=== PATIENT | female | born 1950 | race Caucasian/White ===

== ENCOUNTER 2016-07-07 17:17 | Inpatient (IN) | payer MEDICARE, OTHER ==
--- NOTE | ~2016-07-07 | OP ---
Record Of [place] [address] [place]. [address] NAME: GUALBERTO MURRELL : 46 STATUS : ADM IN [facility]#: [id number] AGE: 66 ADM/REG DATE : 07/10/16 MR#: [id number] REPORT SERV DATE: 07/12/16 DICTATED BY: LVI FLORES JR. DATE: 07/12/16 REPORT STATUS : Draft TRANSCRIBED BY: EDWIN DATE: 07/12/16 DATE OF PROCEDURE: 07/11/2016 IFR OF THE RIGHT CORONARY ARTERY REFERRING PHYSICIANS: Dr. Angelo and Dr. Jonathan Alicea and also Dr. Robert Barnett. PROCEDURE: IFR of the right coronary artery. INDICATION: Xji-QZ-roumnzcja myocardial infarction. ACCESS: Right femoral artery. EQUIPMENT: XB RCA with no side holes. ANTICOAGULATION: 8000 units of intravenous heparin. FLUOROSCOPY TIME FOR THE ENTIRE PROCEDURE: 8.3 minutes with 486 mGy and 150 mL of contrast. ANGIOGRAPHY: There is a mild 10% stenosis of the proximal right coronary artery with an intermediate stenosis of the mid right coronary artery, mildly hazy, approximately 40%, followed by a sequential 25% stenosis. This is a codominant vessel giving rise to a distal right PDA and a smaller accessory right posterolateral branch. The vessel is approximately 4 mm in diameter proximally at mid vessel and 2.75 mm distally. PROCEDURE IN DETAIL: After intravenous heparinization was administered, an XB RCA without side holes accessed the ostium of the right coronary artery. ACT returned at 284 seconds. A Patterson guidewire then successfully traversed the lesions to the distal right coronary artery. IFR was measured twice at 1.00 for which procedure was terminated and no intervention was performed. IMPRESSION: Successful IFR of the mid right coronary artery. PLANS AND RECOMMENDATIONS: 1. Sheath removal at ACT below 170 with manual pressure. 2. Cardiac risk factor reduction. 3. Medical management. /EDWIN Liv Flores Jr., M.D. / [id number] Record Of [address] [place]. [address] NAME: GUALBERTO MURRELL : 46 STATUS : ADM IN PAT#: [id number] AGE: 66 ADM/REG DATE : 07/10/16 MR#: [id number] REPORT SERV DATE: 07/12/16 DICTATED BY: LIV FLORES JR. DATE: 07/12/16 REPORT STATUS : Draft TRANSCRIBED BY: MODL DATE: 07/12/16 CC: Jonathan Angulo Jr, MD William L. Horton, M.D. [place] A Tombul, D.O.
--- NOTE | ~2016-07-07 | HP ---
History And Physical [place] [id number] [place]. [address] NAME: GUALBERTO MURRELL : 46 STATUS : ADM Ninfa PAT#: [id number] AGE: 66 ADM/REG DATE : 07/07/16 MR#: [id number] REPORT SERV DATE: 07/08/16 DICTATED BY: ERNESTINE DAVIS DATE: 07/07/16 REPORT STATUS : Draft TRANSCRIBED BY: MODClaire DATE: 07/07/16 DATE OF ADMISSION: 07/07/2016 CHIEF COMPLAINT: A 66-year-old female presenting with chest pain and no abdominal pain. HISTORY OF PRESENTING ILLNESS: The patient's history was obtained through careful interview with the patient and [id number] coupled with review of [facility] medical records. The patient states that just on the morning of admission, she developed indigestion. She has been having intermittent indigestion and reflux symptoms, but it really was severe on the day of admission. She tried to take some Gas-X and it initially improved these symptoms, but then by the afternoon, she was having worsening pain. She describes chest discomfort in the middle of her back radiating to the back, exacerbated by breathing, a sharp quality, 7/10 severity, but also burning discomfort with reflux symptoms. She had associated shortness of breath with dyspnea on exertion. No nausea or vomiting. She tried to drink some Sprite and eat some Tums, but these did not help. She states "I had to sit straight up in a chair" to get relief. She has felt weak, but no dizziness. No fevers or chills. No abdominal pain otherwise. REVIEW OF SYSTEMS: Otherwise, a 14-point review of systems was obtained and was negative. PAST MEDICAL HISTORY: 1. Pacemaker, but apparently is being evaluated for replacement with AICD placement under the care of Dr. Lisandro Cuellar. 2. Hypertension. 3. Polycythemia vera, followed by Dr. Coreas. 4. Thrombocytopenia, also followed by Dr. Coreas with a negative bone marrow biopsy. 5. No lung disease. PAST SURGICAL HISTORY: 1. A single lead pacemaker. 2. Right foot surgery. ALLERGIES: NO KNOWN DRUG ALLERGIES. SOCIAL HISTORY: Quit smoking five years ago. No alcohol abuse. Is , in poor health from diabetes, atrial fibrillation, and colostomy. The patient has sons. Lives in [place], [place]. History And Physical [address] [address] NAME: GUALBERTO MURRELL : 46 STATUS : ADM Ninfa PAT#: [id number] AGE: 66 ADM/REG DATE : 07/07/16 MR#: [id number] REPORT SERV DATE: 07/08/16 DICTATED BY: ERNESTINE DAVIS DATE: 07/07/16 REPORT STATUS : Draft TRANSCRIBED BY: EDWIN DATE: 07/07/16 FAMILY HISTORY: No cardiac disease. Mother of breast cancer. Father of pancreatic cancer. CURRENT MEDICATIONS: Include Norvasc 5 mg p.o. daily, aspirin 81 mg p.o. daily, Coreg 3.125 mg p.o. b.i.d., Tylenol PM, ramipril 10 mg p.o. q.h.s. PHYSICAL EXAMINATION: VITAL SIGNS: Temperature 98.0, pulse 96, blood pressure 133/80, respiratory rate 22, O2 saturation 96% on room air. GENERAL: A pleasant, cooperative female, in no evidence of acute distress at this time. HEENT: Pupils equal, round, and reactive to light. No conjunctival pallor. No scleral icterus. Nares are patent. Oropharynx is clear of obstruction. Moist mucous membranes. NECK: Trachea midline. No thyromegaly. LYMPH: No cervical lymphadenopathy. No supraclavicular lymphadenopathy. RESPIRATORY: Clear to auscultation by my examination. No wheezes. No rales. No rhonchi. The patient has a normal respiratory effort. CARDIOVASCULAR: Regular rate and rhythm. No murmurs, rubs, or gallops are appreciated. No current extremity edema is appreciated. ABDOMEN: Completely soft. There is no right upper quadrant abdominal pain at all. Nondistended. No hepatosplenomegaly. DERMATOLOGICAL: Warm and dry extremities. No pallor. No cyanosis. PSYCHIATRIC: Normal affect. Good mood. Alert and oriented x3. LABORATORY DATA: White blood cell count 7.6, hemoglobin 15, hematocrit 43, platelets 133. Sodium 144, potassium 3.7, chloride 110, bicarb 28, BUN 15, creatinine 0.65, glucose 99, brain natriuretic peptide 371. Troponin negative. INR 1.1. STUDIES: 1. Chest x-ray by my own evaluation shows no acute cardiopulmonary process. 2. EKG by my own evaluation shows sinus rhythm, left bundle-branch block. 3. CT angiogram of the chest shows no pulmonary embolism, but shows possible edema around the gallbladder that could be consistent with acute or chronic cholecystitis. ASSESSMENT AND PLAN: 1. Chest pain evaluation. Follow troponin. Continue aspirin. Check telemetry. Consult Dr. Cuellar, profiling machine operator. 2. Abnormal CT scan of the gallbladder. Check an ultrasound of the gallbladder. Consult Dr. Fajardo. The patient has a benign exam though. 3. Arrhythmia. The patient apparently needs replaced pacer/AICD. We will consult Dr. Cuellar, profiling machine operator. Check telemetry. 4. Polycythemia with thrombocytopenia. 5. Elevated brain natriuretic peptide, but no signs of volume overload by exam or seemingly by history, but we will check an echocardiogram and follow brain natriuretic peptide closely. History And Physical [address] [address] NAME: GUALBERTO MURRELL : 46 STATUS : ADM Ninfa PAT#: [id number] AGE: 66 ADM/REG DATE : 07/07/16 MR#: [id number] REPORT SERV DATE: 07/08/16 DICTATED BY: ERNESTINE DAVIS DATE: 07/07/16 REPORT STATUS : Draft TRANSCRIBED BY: EDWIN DATE: 07/07/16 SAMANTHA/EDWIN Ernestine Davis M.D. / [id number] CC: Awa Augustine M.D. Michael C Allan, M.D. Daniel Heithold, M.D.
--- NOTE | ~2016-07-07 | CN ---
Consultation Report [place] [address] [place]. [address] NAME: GUALBERTO MURRELL : 46 STATUS : ADM IN [facility]#: [id number] AGE: 66 ADM/REG DATE : 07/10/16 MR#: [id number] REPORT SERV DATE: 07/13/16 DICTATED BY: CRUZ HOLLOWAY DATE: 07/13/16 REPORT STATUS : Draft TRANSCRIBED BY: MODClaire DATE: 07/13/16 DATE OF CONSULTATION: Dear Dr. Angulo: Thank you for requesting my opinion regarding Gualberto Murrell's left-sided iatrogenic pneumothorax. Ms. Murrell is a pleasant 66-year-old female with a significant past medical history of recent pacemaker replacement, polycythemia vera and hypotension, who presented to [facility] with chest pain that she describes as radiating to her back, 7/10 in severity, sharp quality, associated with burning discomfort. The patient underwent a left- sided pacemaker replacement yesterday. Initial postprocedural chest x-ray demonstrated a small pneumothorax, which is now enlarged. The patient states that she has some mild shortness of breath and discomfort in her back that is new since the development of her pneumothorax, which is mild in nature. REVIEW OF SYSTEMS: A detailed 14-point review of systems was completed. Pertinent positives and negatives are listed above. PAST MEDICAL HISTORY: 1. Pacemaker replacement. 2. Hypertension. 3. Polycythemia vera. 4. Thrombocytopenia. PAST SURGICAL HISTORY: 1. Previous single-lead pacemaker. 2. Right foot surgery. ALLERGIES: NO KNOWN DRUG ALLERGIES. HOME MEDICATIONS: Reviewed and located in the paper chart. The patient has been off heparin drip since prior to the pacemaker replacement. SOCIAL HISTORY: The patient quit smoking five years ago. She has no history of alcohol or illicit drug abuse. She has sons and lives in [place], [place]. FAMILY HISTORY: No cardiac disease. Mother of breast cancer. Father of pancreatic cancer. PHYSICAL EXAMINATION: VITAL SIGNS: Afebrile, T-current 96.7, pulse of 109, respiratory rate of 16, 1 L nasal cannula, blood pressure 135/72, and 95%. GENERAL: Chronically ill-appearing elderly female, in no acute distress. Able to Consultation Report [place] [address] [place]. [address] NAME: GUALBERTO MURRELL : 46 STATUS : ADM IN PAT#: [id number] AGE: 66 ADM/REG DATE : 07/10/16 MR#: [id number] REPORT SERV DATE: 07/13/16 DICTATED BY: CRUZ HOLLOWAY DATE: 07/13/16 REPORT STATUS : Draft TRANSCRIBED BY: EDWIN DATE: 07/13/16 communicate in full paragraphs at a time. HEENT: Normocephalic and atraumatic. Pupils equal, round, and reactive to light and accommodation. Posterior oropharynx is clear. NECK: No JVD. No LAD. Trachea midline. CARDIOVASCULAR: Regular rate and rhythm. S1 and S2 present. LUNGS: Diminished breath sounds bilaterally, no significant difference between the left and the right. Breath sounds are heard throughout the left chest base and no dullness to percussion. ABDOMEN: No tympany. Nontender, nondistended, soft. Positive bowel sounds. EXTREMITIES: No clubbing, cyanosis, or edema. SKIN: Left pacemaker replacement. NEUROLOGIC: 5/5 strength in upper and lower extremities. Cranial nerves 2 through 12 intact. Gait not tested. DTRs not performed. LABORATORY DATA: White count of 8, hemoglobin of 13, platelet count of 114. INR of 1.2, PTT of 28. Chemistries demonstrate a creatinine of 0.61. IMAGING: Chest x-ray, PA and lateral, on 07/13/2016 demonstrates increased pneumothorax, described as at least 10% in volume, you can see the left apex as well as the left lateral component of the chest wall with more separation. These findings were discussed with Dr. Angulo as well, and we reviewed the images personally. ASSESSMENT AND PLAN: Ms. Gualberto Murrell is an extremely pleasant 66-year-old female with a significant past medical history of recent pacemaker replacement, whose postprocedural course has been complicated by left-sided pleuritic chest discomfort and pleuritic back discomfort. The patient is found to have an enlarging left-sided pneumothorax. Given her symptoms and the increasing size of the pneumothorax, we have discussed in detail potential options including needle decompression, chest tube placement, and VATS. After careful discussion of the risks, benefits and alternatives to each of these procedures, we agreed to proceed forward with left-sided chest tube placement. The patient is aware that the procedure is associated with potential life-threatening risks, including lung collapse, respiratory failure, and even . A summary of my recommendations are as follows: Proceed with left-sided chest tube placement. Thank you for allowing me to participate in Ms. Murrell's care. CIERRA/EDWIN Cruz Holloway M.D. Consultation Report [address] [address] NAME: GUALBERTO MURRELL : 46 STATUS : ADM IN [facility]#: [id number] AGE: 66 ADM/REG DATE : 07/10/16 MR#: [id number] REPORT SERV DATE: 07/13/16 DICTATED BY: CRUZ HOLLOWAY DATE: 07/13/16 REPORT STATUS : Draft TRANSCRIBED BY: EDWIN DATE: 07/13/16 / [id number] CC: Jonathan Angulo Jr, MD William L. Horton, M.D.
--- NOTE | ~2016-07-07 | CN ---
Consultation Report [facility] [address] [place]. [address] NAME: GUALBERTO MURRELL : 46 STATUS : ADM Ninfa PAT#: [id number] AGE: 66 ADM/REG DATE : 07/07/16 MR#: [id number] REPORT SERV DATE: 07/10/16 DICTATED BY: ROBERT BARNETT DATE: 07/09/16 REPORT STATUS : Draft TRANSCRIBED BY: EDWIN DATE: 07/09/16 CARDIOLOGY CONSULTATION. DATE OF CONSULTATION: 07/08/2016 REFERRED BY: Hospitalist. REASON: Positive troponin measurements, chest pain. PRIMARY CARE PHYSICIAN: Dr. Alicea. HISTORY OF PRESENT ILLNESS: A very pleasant 66-year-old patient followed by Dr. Cuellar and Dr. Alicea, who presents with very typical anginal symptoms. 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 Symptoms did not resolve, so EMS was activated, and EKGs performed. She relates that sublingual nitroglycerin gave her nearly prompt relief of her symptoms. She was brought to the [facility] emergency room and admitted to the Hospitalist Service. Her troponin measurement has peaked at 0.07. Her echocardiogram performed at the bedside revealed a severe cardiomyopathy, and in particular the anterior wall appears fairly akinetic. Left ventricular ejection fraction is very low at not greater than 25%. No significant valvular abnormalities are identified. The patient is a very good historian and she is accompanied at the bedside by her [id number] as well as 2 granddaughters. PAST MEDICAL HISTORY: 1. Hypertension. She takes ramipril and amlodipine. 2. Symptomatic complete heart block. The patient developed dyspnea in 04/2015 and was admitted to [facility] with heart rates in the 20s and 30s and accelerated hypertension. Echo revealed what was described as a normal ejection fraction although I cannot find the report. She had a mild pericardial effusion. I reviewed the echo images myself and it appears that her ejection fraction was not much greater than 50%. Right heart chambers were prominent at that time. She was seen by Dr. Cuellar and received a Medtronic dual-chamber permanent pacemaker. Subsequently, she has been seen in followup by both Dr. Cuellar and Dr. Alicea. The patient's apparently also sees Dr. Cuellar. 3. Other medical history includes tobacco use. She used to smoke a fair amount. She quit subsequently. 4. Cardiomyopathy as above. The patient denies ischemic workup. I checked at [facility], there was no record of any stress testing or cardiac catheterization. She has not had anything like that at [facility] either. ALLERGIES: NONE KNOWN. SOCIAL HISTORY: . Denies alcohol. Consultation Report [place] [address] [place]. [address] NAME: GUALBERTO MURRELL : 46 STATUS : ADM Ninfa PAT#: [id number] AGE: 66 ADM/REG DATE : 07/07/16 MR#: [id number] REPORT SERV DATE: 07/10/16 DICTATED BY: ROBERT BARNETT DATE: 07/09/16 REPORT STATUS : Draft TRANSCRIBED BY: EDWIN DATE: 07/09/16 Subsequent office visits revealed routine findings on pacemaker interrogation including some short bursts of supraventricular tachycardia, nonsustained, asymptomatic. In 01/2016, she reported shortness of breath with exertion and she was found to have nonsustained ventricular tachycardias which labeled by the device, but on review were thought to be more supraventricular in origin. Some activity mode adjustments were made by the compliance representative dealer under the guidance of the office staff. No arrhythmias correlated with her symptoms. The patient reported for an echocardiogram, 02/24, and telephone calls 03/07. The patient was advised to come in and discuss her abnormal echo, LifeVest, and possible ICD. She was seen 03/07 with complaints of fatigue and dyspnea on exertion. No chest pain, palpitations, or syncope. Continued on aspirin, ramipril, and amlodipine at that time; and echo was reviewed, performed 02/25/2016, EF 25% to 30%, dilated left heart chambers. The assessment was heart failure at that time, new onset, and recommended treatment plan was JAIR inhibitor with addition of beta blockers, and discussed wearing a LifeVest at that time. A prescription for Coreg 3.125 b.i.d. was called in on 03/07/2016. The patient had a repeat echo on 07/05/2016. She was subsequently seen on the same day and was scheduled for upgrade of her existing pacemaker to an ICD for this coming Sunday. The patient appears in no distress. She has been seen by General Surgery due to some concerns that maybe her complaints were abdominal in origin. General Surgery signed off, did not think she had any signs of gallbladder illness. At that office visit, she was thought to have [place] Heart Association class III symptoms with an EF of 30%, wide QRS tachycardia at 144 milliseconds, and Dr. Cuellar recommended upgrade of her existing pacemaker to a biventricular ICD which is scheduled for this coming Sunday. She was to continue on ramipril and Coreg. No changes in pacemaker program were made. At that time, her blood pressure was 128/86 with a heart rate of 88. Assessment was left ventricular failure with severe nonischemic cardiomyopathy for greater than 4 months despite maximally tolerated doses of medical therapy. Additional pertinent medical history includes a tobacco history, she quit in 2011; and she has had a hysterectomy. I discussed the case with the patient's nurse and reviewed available data and including the echo today was reviewed. My concerns are that this patient has a severe cardiomyopathy and there is no documentation of CAD risk stratification. She presents now with a small increase in troponin measurements above normal. Diagnostic cardiac catheterization is recommended. I discussed the risks and benefits, possible treatment options based on the results, and the need to remain hospitalized until we could perform this as she is quite symptomatic. IMPRESSION: Consultation Report [address] [address] NAME: GUALBERTO MURRELL : 46 STATUS : ADM Ninfa PAT#: [id number] AGE: 66 ADM/REG DATE : 07/07/16 MR#: [id number] REPORT SERV DATE: 07/10/16 DICTATED BY: ROBERT BARNETT DATE: 07/09/16 REPORT STATUS : Draft TRANSCRIBED BY: EDWIN DATE: 07/09/16 1. Non-ST segment myocardial infarction. 2. Cardiomyopathy, unclear etiology. The patient needs an ischemia workup. 3. Permanent pacemaker, Medtronic device, previous documented episodes of nonsustained supraventricular tachycardias. 4. [place] Heart Association Class III. 5. Jackson class 3 angina. 6. Relative hypotension this hospitalization. PLAN: Change ramipril to 5 b.i.d. Add Coreg which is not currently on her MAR, although I believe she was started on this a few months ago. Okay to remove the LifeVest while she is hospitalized. Schedule left and right heart catheterization Sunday or sooner if needed. Check a lipid panel and other orders as per the chart. SAT/MODL Robert Barnett D.O. / [id number] CC: Awa James M.D. Michael C Allan, M.D.
--- NOTE | ~2016-07-07 | OP ---
Record Of Operation [facility] [address] [place]. [address] NAME: GUALBERTO MURRELL : 46 STATUS : DIS IN PAT#: [id number] AGE: 66 ADM/REG DATE : 07/10/16 MR#: [id number] REPORT SERV DATE: 08/02/16 DICTATED BY: ROBERT BARNETT DATE: 07/31/16 REPORT STATUS : Draft TRANSCRIBED BY: EDWIN DATE: 07/31/16 DATE OF PROCEDURE: 07/11/2016 INDICATION: Non-STEMI. CONSENT: From the patient. COMPLICATIONS: None. CATHETERS USED: 6-[place] Jamil catheters. PCI performed later by Dr. Flores. Dominant right calcification and moderate coronary artery calcification fairly diffuse. PROCEDURE DESCRIPTION: The patient was brought to the cardiac catheterization lab in a fasting state. A time-out was called, the patient identified, and all routine precatheterization concerns were addressed. Sterile Jamil technique was used. Right femoral artery punctured. The patient tolerated the procedure well. She was given the results and recommendations and subsequently had PCI to the LAD, performed by Dr. Flores. FINDINGS: 1. Hemodynamics: The LVEDP was 20-22 mmHg. FFR was performed with a value of 1.0, the results reported separately. 2. The patient had a right dominant system. Left main irregular, calcified, but otherwise widely patent. LAD had a long area of irregularity in its mid portion. The diagonal vessels were very small caliber and the second diagonal had a 90% ostial lesion, not amenable to revascularization. Circumflex had mild irregularity, calcification; no obstructive lesions, except a small obtuse marginal 1 vessel, again not amenable to revascularization. The right coronary artery was a relatively large-sized artery and had diffuse intraluminal irregularity, and there was a concern of the RV marginal possible significant stenosis. Dr. Flores performed FFR on this area and the value was 1.0. No intervention performed. 3. Left ventriculography was performed in the HODGE view, demonstrating an ejection fraction of 25% to 30%. Mitral regurgitation was observed only after PVC. Global hypokinesis noted. CONCLUSION: 1. Coronary artery calcification. 2. Elevated LVEDP. 3. Severe cardiomyopathy. 4. Diffuse nonobstructive coronary artery disease. PLAN: EP referral to Dr. Cuellar for possible consideration of an ICD. ADDENDUM Record Of Operation [facility] [address] [place]. [address] NAME: GUALBERTO MURRELL : 46 STATUS : DIS IN PAT#: [id number] AGE: 66 ADM/REG DATE : 07/10/16 MR#: [id number] REPORT SERV DATE: 08/02/16 DICTATED BY: ROBERT BARNETT. DATE: 07/31/16 REPORT STATUS : Draft TRANSCRIBED BY: MODL DATE: 07/31/16 The following addendum is right heart catheterization. Results; the RA pressure was 5/8 with a mean of 5, RV 34/0, PCWP is 12 mmHg, PA pressure 33/17 mmHg, with a mean of 23 mmHg. The left ventricular pressure was 119/16, with LVEDP of 20 and a pullback central aortic pressure 111/66, with a mean central aortic pressure of 85 mmHg. O2 saturations RA 71, PA 73, FA 99% on room air. Batsheva calculated cardiac output 4.2 L/minute with a cardiac index of 2.1 L/minute/m2. Calculated SVR was 1542 dynes. HEMODYNAMICS: Moderately elevated LVEDP and mildly reduced cardiac output. SAT/MODL Robert Barnett D.O. / [id number] / [id number] CC: Awa Augustine M.D.
--- NOTE | ~2016-07-07 | DS ---
Discharge Summary [address] [place]. [address] NAME: GUALBERTO MURRELL : 46 STATUS : DIS IN PAT#: [id number] AGE: 66 ADM/REG DATE : 07/10/16 MR#: [id number] REPORT SERV DATE: 07/20/16 DICTATED BY: ANGELA ANGELO DATE: 07/19/16 REPORT STATUS : Draft TRANSCRIBED BY: MODL DATE: 07/19/16 ADMISSION DATE: 07/10/2016 DISCHARGE DATE: 07/19/2016 DISCHARGE DIAGNOSES: 1. Postprocedure pneumothorax is improved, resolved. 2. Coronary artery disease. 3. Chronic polycythemia vera with chronic thrombocytopenia which is stable. 4. Asymptomatic cholelithiasis. 5. Pacemaker upgraded on 07/02/2016. 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 Robert Barnett D.O. 2. Cruz Shetty M.D. HISTORY OF PRESENT ILLNESS: This is a 66-year-old female patient, who came to the hospital with chest pain. Please see dictated H and P. HOSPITAL COURSE: Please see dictated H and P, dictated. Interim discharge summary done by Dr. Angulo. The patient came to the hospital with chest pain and had a cardiac catheterization which showed a non flow-limiting coronary artery disease, not required any intervention. The patient also was seen by Dr. Cuellar for pacemaker and AICD upgrade. After she had a pacemaker procedure, she developed the left-sided postprocedural pneumothorax. Pulmonary Service was consulted and she had a chest tube treatment. After repeating the chest tube on and off, the patient developed pneumothorax as well. Finally, her x-ray did not show any recurrent pneumothorax after the tube was discontinued the last night. Her pacemaker was interrogated and it is working within normal range. The patient remained in stable condition. Does not require any home oxygen. No chest pain and to maximize inpatient benefit, will be discharged to home in stable condition. TIME SPENT: More than 30 minutes in discharge coordination. DISCHARGE MEDICATIONS: Same as home medication. DISPOSITION: Patient is discharged to home in stable condition. DICTATED BY: Angela Angelo M.D. EKL/EDWIN Discharge Summary [address] [place] [address] NAME: GUALBERTO MURRELL : 46 STATUS : DIS IN [facility]#: [id number] AGE: 66 ADM/REG DATE : 07/10/16 MR#: [id number] REPORT SERV DATE: 07/20/16 DICTATED BY: ANGELA ANGELO DATE: 07/19/16 REPORT STATUS : Draft TRANSCRIBED BY: [facility] DATE: 07/19/16 Angela Angelo M.D. / [id number] CC: Awa Augustine M.D.
--- NOTE | ~2016-07-07 | IDS ---
Interim Discharge Summary [facility] [address] [place]. [address] NAME: GUALBERTO MURRELL : 46 STATUS : ADM IN [facility] WITH [facility]#: [id number] AGE: 66 ADM/REG DATE : 07/10/16 MR#: [id number] REPORT SERV DATE: 07/16/16 DICTATED BY: JR. ANGULO WILLIAM JOHN DATE: 07/16/16 REPORT STATUS : Draft TRANSCRIBED BY: EDWIN DATE: 07/16/16 ADMISSION DATE: 07/10/2016 DISCHARGE DATE: Date of admission is 07/10/2016, date of this summary 07/16/2016. This summary covers the time period from 07/11/2015 through 07/16/2016. WORKING DIAGNOSES: 1. Postprocedural left pneumothorax. 2. Elevated troponin with a nonobstructive coronary catheterization. 3. Chronic polycythemia vera. 4. Chronic thrombocytopenia. 5. Asymptomatic cholelithiasis. 6. Status post permanent pacemaker/AICD upgrade. OPERATIONS PROCEDURES AND TREATMENTS: Include: 1. Angiography of the coronary artery which showed a mild 10% stenosis of the proximal right coronary artery with an intermediate stenosis of the mid right coronary artery. Mild hazy approximately 40% followed by 25% sequential stenosis, this was a codominant vessel, done by Dr. Flores. 2. Chest x-ray done 07/07/2016, which showed cardiomegaly without focal air space consolidation. 3. CT angiogram of the chest on 07/07/2016, which showed clear lungs without pulmonary embolism. There was coronary artery disease in the LAD and circumflex, bipolar pacemaker in good position. The gallbladder with some subtle changes with mild edema of the wall. 4. Echocardiogram done 07/08/2016, which showed moderately dilated left atrium with ejection fraction 15% to 20%. There was tricuspid regurg and jet insufficient to quantify. 5. Gallbladder ultrasound done 07/08/2016 showed gallstones, otherwise normal. 6. Portable chest x-ray done 07/12/2016 which showed pacemaker revision with very tiny left apical pneumothorax. 7. Pacemaker removal and ICD placement by Dr. Lisandro Cuellar, with upgrade from a dual lead permanent pacemaker to CRTD. There was old right ventricular lead removal done on 07/12/2016. 8. Chest tube placement by Dr. Shetty with failed attempts to clamp x2. 9. Multiple followup chest x-rays. CURRENT MEDICATIONS: Please see list. HISTORY OF PRESENT ILLNESS: Briefly, the patient is a 66-year-old female who presented to the emergency room on 07/07/2016 with chest pain and abdominal pain. She developed indigestion on the morning of admission which was severe, tried taking Gas-X, it did not help. She presented to the emergency room for further help. Initial exam showed temperature 98, blood pressure 133/80, heart rate 96, respiratory rate 22, saturation 96% on room air. Exam was overall unremarkable. Initial troponin was negative. Chest x-ray and Interim Discharge Summary [id number] [place]. [address] NAME: GUALBERTO MURRELL : 46 STATUS : ADM IN [facility] WITH [facility]#: [id number] AGE: 66 ADM/REG DATE : 07/10/16 MR#: [id number] REPORT SERV DATE: 07/16/16 DICTATED BY: JR. ANGULO WILLIAM JOHN DATE: 07/16/16 REPORT STATUS : Draft TRANSCRIBED BY: EDWIN DATE: 07/16/16 CT angiogram are detailed above. EKG showed bundle branch block. The patient is admitted to [facility]. Regarding the abnormal CT of the gallbladder, the patient was seen in consultation by General Surgery, underwent an ultrasound of the gallbladder which showed no abnormalities. The patient had no further gastrointestinal symptoms, and there was no intervention done. Regarding the chest pain, the patient had serial cardiac enzymes with minimal elevation of troponin up to 0.07. She was seen in consultation by Dr. Barnett of Cardiology, and recommendation was for heart catheterization. The patient underwent cardiac catheterization on 07/11/2016 which showed an ejection fraction 25% to 30%, end-diastolic pressure of 20-22 mm Hg. It is felt she had nonobstructive coronary disease. No intervention was done. The patient had previously planned device upgrade for her permanent pacemaker which was planned for 07/12/2016. The patient was kept overnight, had device upgrade by Dr. Reid with postprocedural pneumothorax. The initial chest x-ray showed very tiny pneumothorax. She was placed on high levels of oxygen, observed and on 07/13/2016 she had a much larger pneumothorax. Pulmonary Medicine, Dr. Shetty was contacted, and a chest tube was placed to suction. A followup chest x-ray showed no pneumothorax. The chest tube was clamped with subsequent followup chest x-ray showing reaccumulation of pneumothorax. The patient's chest tube was placed back to suction again with resolution of the pneumothorax, it was again clamped and again developed a recurrent pneumothorax. The patient is currently with a chest tube to suction. The plan will be to transition through water seal for an extended period of time prior to discontinuing the chest tube. Regarding the remainder of the patient's health problems, they were stable and were not addressed. My partner will assume care of this patient tomorrow morning. WJF/MODL Jonathan Angulo Jr, MD / [id number] CC: Jonathan Angulo Jr, MD William L. Horton, M.D.
[2016-07-07 16:35] LABS: BASOPHILS 0.7 %; BASOPHILS ABSOLUTE 0.05 10/3/uL (0.0-0.16); EOSINOPHILS 1.6 %; EOSINOPHILS ABSOLUTE 0.12 10/3/uL (0.0-0.53); ER CBC TAT 0 Hrs 09 Mins; HEMATOCRIT 43.3 % (36.0-48.0); HEMOGLOBIN 15.1 g/dL (12.0-16.0); IMMATURE GRANULOCYTES 0.3 %; IMMATURE GRANULOCYTES ABSOLUTE 0.02 10/3/uL (0.0-0.11); LYMPHOCYTES 20.9 %; LYMPHOCYTES ABSOLUTE 1.59 10/3/uL (0.67-4.30); MEAN CORPUS HGB CONC 34.9 g/dL (32.0-36.0); MEAN CORPUSCULAR HEMOGLOB 31.1 pg (26.0-34.0); MEAN CORPUSCULAR VOLUME 89.3 fL (80-100); MONOCYTES 9.5 %; MONOCYTES ABSOLUTE 0.72 10/3/uL (0.21-1.20); NEUTROPHILS ABSOLUTE 5.11 10/3/uL (2.02-8.40); PLATELET COUNT 133 10/3/uL (150-400); RBC DISTRIBUTION WIDTH 13.1 % (12.0-16.0); RED CELL COUNT 4.85 10/6/uL (4.0-5.6); WHITE BLOOD CELLS 7.6 10/3/uL (4.5-10.5)
[2016-07-07 16:36] LABS: MANUAL DIFF NO %
[2016-07-07 16:42] LABS: INTERNATIONAL NORMAL RATI 1.1 UNITS (-); PARTIAL THROMBO TIME 27.3 SEC (22.5-37.2); PROTIME (NOT ORD) 13.6 SEC (12.0-14.5)
[2016-07-07 16:51] LABS: BUN (BLOOD UREA NITROGEN) 15 MG/DL (6-23); CHEST PAIN PROFILE TAT 0 Hrs 25 Mins; CHLORIDE, SERUM 110 MMOL/L (96-112); CO2 (CARBON DIOXIDE) 28 MMOL/L (24-34); CREATININE 0.65 MG/DL (0.55-1.02); GFR AFRICAN AMERICAN 106 ML/MIN (>=60); GFR NON AFRICAN AMERICAN 91 ML/MIN (>=60); GLUCOSE, SERUM 99 MG/DL (60-99); POTASSIUM, SERUM 3.7 MMOL/L (3.5-5.3); SODIUM, SERUM 144 MMOL/L (135-148); TROPONIN I 0.02 NG/ML (<0.05)
[~2016-07-07 17:17] MED LIST: ALTACE10 MG PO; ASAB PO; MULTIPLE VIT PO; NORV5 PO
[2016-07-07 18:47] LABS: D-DIMER QUANTITATIVE 0.85 ug/mLFEU (< 0.50)
[2016-07-07] MEDS ORDERED: ALTACE10 MG PO (22:10)
[2016-07-07] MEDS ORDERED: COREG3 PO (22:11)
[2016-07-07] MEDS ORDERED: NORV5 PO (22:11)
[2016-07-07] MEDS ORDERED: TYLENOL PM PO (22:12)
[2016-07-07] MEDS ORDERED: ASAB PO (22:12)
[2016-07-08 06:08] LABS: HEMATOCRIT 42.4 % (36.0-48.0); HEMOGLOBIN 14.6 g/dL (12.0-16.0); MEAN CORPUS HGB CONC 34.4 g/dL (32.0-36.0); MEAN CORPUSCULAR HEMOGLOB 31.2 pg (26.0-34.0); MEAN CORPUSCULAR VOLUME 90.6 fL (80-100); MEAN PLATELET VOLUME 12.6 fL (9.2-13.0); PLATELET COUNT 120 10/3/uL (150-400); RBC DISTRIBUTION WIDTH 13.3 % (12.0-16.0); RED CELL COUNT 4.68 10/6/uL (4.0-5.6); WHITE BLOOD CELLS 7.8 10/3/uL (4.5-10.5)
[2016-07-08 06:13] LABS: MANUAL DIFF YES %
[2016-07-08 06:16] LABS: INTERNATIONAL NORMAL RATI 1.2 UNITS (-); PARTIAL THROMBO TIME 30.9 SEC (22.5-37.2); PROTIME (NOT ORD) 14.6 SEC (12.0-14.5)
[2016-07-08 06:30] LABS: BAND NEUTROPHILS 3 %; LYMPHOCYTES 12 %; LYMPHOCYTES ABSOLUTE (CALC) 0.94 10/3/uL (0.67-4.30); MONOCYTES 6 %; MONOCYTES ABSOLUTE (CALC) 0.47 10/3/uL (0.21-1.20); PLATELET ESTIMATE SLT DEC (ADEQUATE); RBC MORPHOLOGY NORM (NORMAL); SEGMENTED NEUTROPHIL (0) 79 %; TOTAL NUCLEATED CELLS 100
[2016-07-08 06:36] LABS: A/G RATIO 1.1 (0.7-1.9); ALBUMIN 3.5 G/DL (3.5-5.0); ALKALINE PHOSPHATASE 61 U/L (45-117); BUN (BLOOD UREA NITROGEN) 14 MG/DL (6-23); CALCIUM, SERUM 9.5 MG/DL (8.5-10.4); CHLORIDE, SERUM 109 MMOL/L (96-112); CK-MB 2.3 NG/ML; CO2 (CARBON DIOXIDE) 26 MMOL/L (24-34); CPK 73 U/L (0-200); CREATININE 0.52 MG/DL (0.55-1.02); GFR AFRICAN AMERICAN 114 ML/MIN (>=60); GFR NON AFRICAN AMERICAN 98 ML/MIN (>=60); GLOBULIN 3.2 G/DL (2.5-4.1); GLUCOSE, SERUM 104 MG/DL (60-99); POTASSIUM, SERUM 4.2 MMOL/L (3.5-5.3); SGOT(AST) 24 U/L (5-40); SGPT(ALT) 35 U/L (5-65); SODIUM, SERUM 141 MMOL/L (135-148); TOTAL BILIRUBIN 0.6 MG/DL (0-1.2); TOTAL PROTEIN 6.7 G/DL (6.0-8.5)
[2016-07-08 06:37] LABS: TROPONIN I 0.07 NG/ML (<0.05)
[2016-07-08 08:19] LABS: PROCALCITONIN <0.05 ng/mL (<0.5)
[2016-07-09 04:23] LABS: BASOPHILS 0.6 %; BASOPHILS ABSOLUTE 0.04 10/3/uL (0.0-0.16); EOSINOPHILS 1.9 %; EOSINOPHILS ABSOLUTE 0.12 10/3/uL (0.0-0.53); HEMATOCRIT 43.2 % (36.0-48.0); HEMOGLOBIN 15.1 g/dL (12.0-16.0); IMMATURE GRANULOCYTES 0.2 %; IMMATURE GRANULOCYTES ABSOLUTE 0.01 10/3/uL (0.0-0.11); LYMPHOCYTES 34.2 %; LYMPHOCYTES ABSOLUTE 2.13 10/3/uL (0.67-4.30); MEAN CORPUSCULAR HEMOGLOB 31.7 pg (26.0-34.0); MEAN CORPUSCULAR VOLUME 90.8 fL (80-100); MEAN PLATELET VOLUME 13.3 fL (9.2-13.0); MONOCYTES ABSOLUTE 0.81 10/3/uL (0.21-1.20); NEUTROPHILS 50.1 %; NEUTROPHILS ABSOLUTE 3.12 10/3/uL (2.02-8.40); PLATELET COUNT 113 10/3/uL (150-400); RBC DISTRIBUTION WIDTH 13.2 % (12.0-16.0); RED CELL COUNT 4.76 10/6/uL (4.0-5.6); WHITE BLOOD CELLS 6.2 10/3/uL (4.5-10.5)
[2016-07-09 04:24] LABS: MANUAL DIFF NO %
[2016-07-09 04:39] LABS: A/G RATIO 1.1 (0.7-1.9); ALBUMIN 3.5 G/DL (3.5-5.0); ALKALINE PHOSPHATASE 58 U/L (45-117); BUN (BLOOD UREA NITROGEN) 13 MG/DL (6-23); CALCIUM, SERUM 10.1 MG/DL (8.5-10.4); CHLORIDE, SERUM 107 MMOL/L (96-112); CO2 (CARBON DIOXIDE) 28 MMOL/L (24-34); CREATININE 0.69 MG/DL (0.55-1.02); GFR AFRICAN AMERICAN 104 ML/MIN (>=60); GFR NON AFRICAN AMERICAN 89 ML/MIN (>=60); GLOBULIN 3.1 G/DL (2.5-4.1); GLUCOSE, SERUM 97 MG/DL (60-99); PHOSPHORUS, SERUM 3.4 MG/DL (2.5-4.5); POTASSIUM, SERUM 4.5 MMOL/L (3.5-5.3); SGOT(AST) 19 U/L (5-40); SGPT(ALT) 27 U/L (5-65); SODIUM, SERUM 142 MMOL/L (135-148); TOTAL BILIRUBIN 0.6 MG/DL (0-1.2); TOTAL PROTEIN 6.6 G/DL (6.0-8.5)
[2016-07-10 03:47] LABS: BASOPHILS 0.5 %; BASOPHILS ABSOLUTE 0.04 10/3/uL (0.0-0.16); EOSINOPHILS 1.9 %; EOSINOPHILS ABSOLUTE 0.14 10/3/uL (0.0-0.53); HEMATOCRIT 40.1 % (36.0-48.0); IMMATURE GRANULOCYTES 0.3 %; IMMATURE GRANULOCYTES ABSOLUTE 0.02 10/3/uL (0.0-0.11); LYMPHOCYTES 25.9 %; LYMPHOCYTES ABSOLUTE 1.89 10/3/uL (0.67-4.30); MEAN CORPUS HGB CONC 34.9 g/dL (32.0-36.0); MEAN CORPUSCULAR HEMOGLOB 31.7 pg (26.0-34.0); MEAN CORPUSCULAR VOLUME 90.9 fL (80-100); MEAN PLATELET VOLUME 13.3 fL (9.2-13.0); MONOCYTES 13.2 %; MONOCYTES ABSOLUTE 0.96 10/3/uL (0.21-1.20); NEUTROPHILS 58.2 %; NEUTROPHILS ABSOLUTE 4.24 10/3/uL (2.02-8.40); PLATELET COUNT 112 10/3/uL (150-400); RBC DISTRIBUTION WIDTH 13.1 % (12.0-16.0); RED CELL COUNT 4.41 10/6/uL (4.0-5.6); WHITE BLOOD CELLS 7.3 10/3/uL (4.5-10.5)
[2016-07-10 03:52] LABS: MANUAL DIFF NO %
[2016-07-10 04:08] LABS: A/G RATIO 1.1 (0.7-1.9); ALBUMIN 3.5 G/DL (3.5-5.0); ALKALINE PHOSPHATASE 58 U/L (45-117); BUN (BLOOD UREA NITROGEN) 12 MG/DL (6-23); CALCIUM, SERUM 9.8 MG/DL (8.5-10.4); CHLORIDE, SERUM 106 MMOL/L (96-112); CO2 (CARBON DIOXIDE) 30 MMOL/L (24-34); CREATININE 0.77 MG/DL (0.55-1.02); GFR AFRICAN AMERICAN 92 ML/MIN (>=60); GFR NON AFRICAN AMERICAN 79 ML/MIN (>=60); GLOBULIN 3.2 G/DL (2.5-4.1); GLUCOSE, SERUM 104 MG/DL (60-99); SGOT(AST) 17 U/L (5-40); SGPT(ALT) 28 U/L (5-65); SODIUM, SERUM 143 MMOL/L (135-148); TOTAL BILIRUBIN 0.5 MG/DL (0-1.2); TOTAL PROTEIN 6.7 G/DL (6.0-8.5)
[2016-07-11 03:31] LABS: BASOPHILS 0.5 %; BASOPHILS ABSOLUTE 0.04 10/3/uL (0.0-0.16); EOSINOPHILS 1.1 %; EOSINOPHILS ABSOLUTE 0.09 10/3/uL (0.0-0.53); HEMATOCRIT 39.4 % (36.0-48.0); HEMOGLOBIN 13.6 g/dL (12.0-16.0); IMMATURE GRANULOCYTES 0.1 %; IMMATURE GRANULOCYTES ABSOLUTE 0.01 10/3/uL (0.0-0.11); LYMPHOCYTES 27.1 %; LYMPHOCYTES ABSOLUTE 2.25 10/3/uL (0.67-4.30); MEAN CORPUS HGB CONC 34.5 g/dL (32.0-36.0); MEAN CORPUSCULAR HEMOGLOB 31.5 pg (26.0-34.0); MEAN CORPUSCULAR VOLUME 91.2 fL (80-100); MEAN PLATELET VOLUME 13.5 fL (9.2-13.0); MONOCYTES 17.5 %; MONOCYTES ABSOLUTE 1.45 10/3/uL (0.21-1.20); NEUTROPHILS 53.7 %; NEUTROPHILS ABSOLUTE 4.45 10/3/uL (2.02-8.40); PLATELET COUNT 114 10/3/uL (150-400); RBC DISTRIBUTION WIDTH 13.1 % (12.0-16.0); RED CELL COUNT 4.32 10/6/uL (4.0-5.6); WHITE BLOOD CELLS 8.3 10/3/uL (4.5-10.5)
[2016-07-11 03:37] LABS: INTERNATIONAL NORMAL RATI 1.1 UNITS (-); PROTIME (NOT ORD) 14.4 SEC (12.0-14.5)
[2016-07-11 03:38] LABS: MANUAL DIFF NO %
[2016-07-11 03:51] LABS: BUN (BLOOD UREA NITROGEN) 13 MG/DL (6-23); CALCIUM, SERUM 10.3 MG/DL (8.5-10.4); CHLORIDE, SERUM 105 MMOL/L (96-112); CHOL/HDL RATIO(NOT ORDER) 1.8 (0-5); CHOLESTEROL 157 MG/DL (< 200); CO2 (CARBON DIOXIDE) 28 MMOL/L (24-34); CREATININE 0.61 MG/DL (0.55-1.02); GFR AFRICAN AMERICAN 108 ML/MIN (>=60); GFR NON AFRICAN AMERICAN 93 ML/MIN (>=60); GLUCOSE, SERUM 107 MG/DL (60-99); HDL CHOLESTEROL 88 MG/DL (> 49); LDL CHOLESTEROL 51 MG/DL (< 130); NON-HDL CHOLESTEROL 69 MG/DL (< 160); POTASSIUM, SERUM 3.6 MMOL/L (3.5-5.3); SODIUM, SERUM 142 MMOL/L (135-148); TRIGLYCERIDE 92 MG/DL (< 150)
[2016-07-13 11:32] LABS: INTERNATIONAL NORMAL RATI 1.2 UNITS (-); PARTIAL THROMBO TIME 28.4 SEC (22.5-37.2); PROTIME (NOT ORD) 14.8 SEC (12.0-14.5)
[2016-07-16 06:33] LABS: BASOPHILS 0.9 %; BASOPHILS ABSOLUTE 0.05 10/3/uL (0.0-0.16); EOSINOPHILS 5.5 %; EOSINOPHILS ABSOLUTE 0.31 10/3/uL (0.0-0.53); HEMATOCRIT 39.2 % (36.0-48.0); HEMOGLOBIN 13.2 g/dL (12.0-16.0); IMMATURE GRANULOCYTES 0.2 %; IMMATURE GRANULOCYTES ABSOLUTE 0.01 10/3/uL (0.0-0.11); LYMPHOCYTES 24.1 %; LYMPHOCYTES ABSOLUTE 1.37 10/3/uL (0.67-4.30); MEAN CORPUS HGB CONC 33.7 g/dL (32.0-36.0); MEAN CORPUSCULAR HEMOGLOB 30.8 pg (26.0-34.0); MEAN CORPUSCULAR VOLUME 91.6 fL (80-100); MEAN PLATELET VOLUME 12.7 fL (9.2-13.0); MONOCYTES 15.3 %; MONOCYTES ABSOLUTE 0.87 10/3/uL (0.21-1.20); NEUTROPHILS ABSOLUTE 3.07 10/3/uL (2.02-8.40); PLATELET COUNT 116 10/3/uL (150-400); RBC DISTRIBUTION WIDTH 13.4 % (12.0-16.0); RED CELL COUNT 4.28 10/6/uL (4.0-5.6); WHITE BLOOD CELLS 5.7 10/3/uL (4.5-10.5)
[2016-07-16 06:34] LABS: MANUAL DIFF NO %
[2016-07-16 06:45] LABS: BUN (BLOOD UREA NITROGEN) 14 MG/DL (6-23); CALCIUM, SERUM 9.7 MG/DL (8.5-10.4); CHLORIDE, SERUM 105 MMOL/L (96-112); CO2 (CARBON DIOXIDE) 31 MMOL/L (24-34); CREATININE 0.49 MG/DL (0.55-1.02); GFR AFRICAN AMERICAN 116 ML/MIN (>=60); GFR NON AFRICAN AMERICAN 100 ML/MIN (>=60); GLUCOSE, SERUM 91 MG/DL (60-99); SODIUM, SERUM 142 MMOL/L (135-148)
[2016-07-18 06:37] LABS: BASOPHILS 0.6 %; BASOPHILS ABSOLUTE 0.04 10/3/uL (0.0-0.16); EOSINOPHILS ABSOLUTE 0.38 10/3/uL (0.0-0.53); HEMATOCRIT 37.8 % (36.0-48.0); IMMATURE GRANULOCYTES 0.3 %; IMMATURE GRANULOCYTES ABSOLUTE 0.02 10/3/uL (0.0-0.11); LYMPHOCYTES ABSOLUTE 1.39 10/3/uL (0.67-4.30); MANUAL DIFF NO %; MEAN CORPUS HGB CONC 34.4 g/dL (32.0-36.0); MEAN CORPUSCULAR HEMOGLOB 31.8 pg (26.0-34.0); MEAN CORPUSCULAR VOLUME 92.4 fL (80-100); MEAN PLATELET VOLUME 12.7 fL (9.2-13.0); MONOCYTES 16.1 %; MONOCYTES ABSOLUTE 1.02 10/3/uL (0.21-1.20); NEUTROPHILS ABSOLUTE 3.48 10/3/uL (2.02-8.40); PLATELET COUNT 138 10/3/uL (150-400); RBC DISTRIBUTION WIDTH 13.2 % (12.0-16.0); RED CELL COUNT 4.09 10/6/uL (4.0-5.6); WHITE BLOOD CELLS 6.3 10/3/uL (4.5-10.5)
[2016-07-18 06:54] LABS: BUN (BLOOD UREA NITROGEN) 14 MG/DL (6-23); CALCIUM, SERUM 10.3 MG/DL (8.5-10.4); CHLORIDE, SERUM 102 MMOL/L (96-112); CO2 (CARBON DIOXIDE) 35 MMOL/L (24-34); GFR AFRICAN AMERICAN 103 ML/MIN (>=60); GFR NON AFRICAN AMERICAN 89 ML/MIN (>=60); GLUCOSE, SERUM 90 MG/DL (60-99); POTASSIUM, SERUM 4.6 MMOL/L (3.5-5.3); SODIUM, SERUM 139 MMOL/L (135-148)
[2016-07-19] MEDS ORDERED: PCET PO (11:15)
== END 2016-07-19 12:06 | disposition home health service (06) | DRG 222 ==
LOC: ER 17:17 → 5NO 22:10
PROVIDERS: Emergency Medicine; Family Medicine; Hospitalist; Internal Medicine
PROC: 02PA0MZ Removal of Cardiac Lead from Heart, Open Approach (ICD-10-PCS; principal; 2016-07-12)
PROC: 02HK3KZ Insertion of Defibrillator Lead into Right Ventricle, Percutaneous Approach (ICD-10-PCS; 2016-07-12)
PROC: 0JH609Z Insertion of Cardiac Resynchronization Defibrillator Pulse Generator into Chest Subcutaneous Tissue and Fascia, Open Approach (ICD-10-PCS; 2016-07-12)
PROC: B2141ZZ Fluoroscopy of Right Heart using Low Osmolar Contrast (ICD-10-PCS; 2016-07-12)
PROC: 02H43KZ Insertion of Defibrillator Lead into Coronary Vein, Percutaneous Approach (ICD-10-PCS; 2016-07-12)
PROC: 0JPT0PZ Removal of Cardiac Rhythm Related Device from Trunk Subcutaneous Tissue and Fascia, Open Approach (ICD-10-PCS; 2016-07-12)
PROC: 0W9B30Z Drainage of Left Pleural Cavity with Drainage Device, Percutaneous Approach (ICD-10-PCS; 2016-07-13)
DX: I50.23 Acute on chronic systolic (congestive) heart failure (principal); I21.4 Non-ST elevation (NSTEMI) myocardial infarction; I44.2 Atrioventricular block, complete; I42.9 Cardiomyopathy, unspecified; J95.811 Postprocedural pneumothorax; D69.6 Thrombocytopenia, unspecified; D75.1 Secondary polycythemia; Z95.0 Presence of cardiac pacemaker; I25.10 Atherosclerotic heart disease of native coronary artery without angina pectoris; I10 Essential (primary) hypertension; K80.20 Calculus of gallbladder without cholecystitis without obstruction
CPT/HCPCS: 33225; 33233; 33234; 33249; 71010; 71020; 71275; 76705; 80048; 80053; 80061; 82550; 82553; 82803; 83735; 83880; 84100; 84145; 84443; 84484; 85025; 85347; 85379; 85610; 85730; 93005; 93460; 93571; 93641; 94640; 96374; 99285; A9270-GY; C1769; C1882; C1887; C1892; C1894; C1895; C1900; C8929; J0690; J1170; J2250; J2405; J3010; Q9957; Q9967